=== PATIENT | female | born 1945 | race Asian ===

== ENCOUNTER 2019-08-16 15:32 | Day surgery (SDC) | payer MEDICARE ==
[~2019-08-16] VITALS: Ht 147.3 cm; Wt 68.0 kg
[~2019-08-16 15:32] MED LIST: ASCO10004 PO; ATEN50TA41 PO; BUPIVACAINE/EPI 0.5% 1:200K ONE; CHOL100014 PO; CYAN1TAB29 PO; ESMOLOL 100 MG/10 ML ONE; FENTANYL PF 100 MCG/2ML ONE; GINK60TA PO; HEPARIN 1,000 UNITS/ML, 10ML ONE; OMEG1CAP23 PO; VITA10004 PO; VITA1TAB19 PO; [UNRECOGNIZED DRUG - CODE] PO
[2019-08-16] MEDS ORDERED: LACTATED RINGERS 1,000 ML IV SCH ×2 (15:50→20:00)
[2019-08-16] MEDS ORDERED: SCOPOLAMINE PATCH, 1.5MG PATCH.TD72 TD ONE (16:00)
[2019-08-16] MEDS ORDERED: GABAPENTIN 300 MG CAPSULE PO ONE (16:00)
[2019-08-16] MEDS ORDERED: ONDANSETRON ODT 8 MG PO ONE (16:00)
[2019-08-16] MEDS ORDERED: ACETAMINOPHEN 500 MG TABLET PO ONE (16:00)
[2019-08-16] MEDS ORDERED: ONDANSETRON ODT 8 MG ONE (16:01)
[2019-08-16] MEDS ORDERED: ACETAMINOPHEN 500 MG TABLET ONE (16:01)
[2019-08-16] MEDS ORDERED: GABAPENTIN 300 MG CAPSULE ONE (16:02)
[2019-08-16 16:05] VITALS: BP 170/87
[2019-08-16] MEDS ORDERED: PLEASE ENTER ALLERGIES MC SCH (16:30)
[2019-08-16 16:37] LABS: ALANINE AMINOTRANSFERASE 38 U/L (12-78); ALBUMIN 4.3 g/dL (3.4-5.0); ANION GAP 8 mmol/L (5-15); CALCIUM 9.7 mg/dL (8.5-10.1); CHLORIDE 105 mmol/L (98-107); CREATININE 0.97 mg/dL (0.55-1.02)
[2019-08-16 16:39] LABS: ALKALINE PHOSPHATASE 83 U/L (45-117); BILIRUBIN,TOTAL 1.3 mg/dL (0.2-1.0); TOTAL PROTEIN 8.3 g/dL (6.4-8.2)
[2019-08-16] MEDS ORDERED: HYDROmorphone 2 MG/ML, 1ML IVPush PRN (17:00)
[2019-08-16] MEDS ORDERED: LABETALOL 5MG/ML, 20ML IV PRN (17:00)
[2019-08-16] MEDS ORDERED: MEPERIDINE/PF 25MG/ML,1ML IVPush PRN (17:00)
[2019-08-16] MEDS ORDERED: PROMETHAZINE 25 MG/ML, 1ML IV PRN (17:00)
[2019-08-16] MEDS ORDERED: HALOPERIDOL 5 MG/ML IV PRN (17:00)
[2019-08-16] MEDS ORDERED: FENTANYL PF 100 MCG/2ML IV PRN (17:00)
[2019-08-16] MEDS ORDERED: hydrALAzine 20 MG/ML, 1ML IV PRN (17:00)
[2019-08-16] MEDS ORDERED: OXYcodone 5 MG/5 ML ORAL.SOL UDC PO PRN (17:00)
[2019-08-16] MEDS ORDERED: PROPOFOL 10 MG/ML, 20ML ONE (17:05)
[2019-08-16] MEDS ORDERED: GLYCOPYRROLATE 0.2MG/1ML, 5ML ONE (17:05)
[2019-08-16] MEDS ORDERED: ROCURONIUM 10MG/ML,5ML ONE (17:05)
[2019-08-16] MEDS ORDERED: NEOSTIGMINE 1 MG/ML, 10ML ONE (17:05)
[2019-08-16] MEDS ORDERED: DEXAMETHASONE 4 MG/ML, 1ML ONE (17:05)
[2019-08-16] MEDS ORDERED: CEFAZOLIN 1,000 MG ONE (17:05)
[2019-08-16] MEDS ORDERED: SUCCINYLCHOLINE 20 MG/ML, 10ML ONE (17:05)
[2019-08-16] MEDS ORDERED: ONDANSETRON 2MG/ML, 2ML ONE (17:05)
[2019-08-16] MEDS ORDERED: METOPROLOL 1 MG/ML, 5ML ONE (17:27)
[2019-08-16] MEDS: METOPROLOL 1 MG/ML, 5ML IV PRN ×5 (17:32→18:13)
[2019-08-16] MEDS ORDERED: MORPHINE SULFATE 4 MG/ML, 1ML IVPush PRN (20:00)
[2019-08-16] MEDS ORDERED: ONDANSETRON 2MG/ML, 2ML IVPush PRN (20:30)
== END 2019-08-16 19:30 | disposition home or self-care (01) ==
LOC: OR 15:32 → 4NE 18:43 → OR 19:30
PROVIDERS: ATTEND Surgery
DX: C50.812 Malignant neoplasm of overlapping sites of left female breast (principal); I10 Essential (primary) hypertension; F41.9 Anxiety disorder, unspecified; K21.9 Gastro-esophageal reflux disease without esophagitis; E66.9 Obesity, unspecified; Z68.30 Body mass index [BMI] 30.0-30.9, adult; Z79.899 Other long term (current) drug therapy; Z85.3 Personal history of malignant neoplasm of breast; Z90.5 Acquired absence of kidney
CPT/HCPCS: 36415; 36561; 77001; 80053; C1769; C1788; J0330; J0690; J1100; J1644; J2405; J2704; J3010; J7120; Q0162; 71045; 76000; 77002; G0378; J2710

== ENCOUNTER 2019-08-20 09:05 | Outpatient (CLI) | payer MEDICAID, MEDICARE ==
[~2019-08-20 09:05] MED LIST changes: -BUPIVACAINE/EPI 0.5% 1:200K ONE; -ESMOLOL 100 MG/10 ML ONE; -FENTANYL PF 100 MCG/2ML ONE; -HEPARIN 1,000 UNITS/ML, 10ML ONE
[2019-08-20] MEDS ORDERED: GADOTERATE 5 MMOL/10 ML VIAL ONE (10:54)
== END 2019-08-20 23:59 | disposition home or self-care (01) ==
LOC: CFH 09:05
PROVIDERS: ATTEND Internal Medicine Hematology & Oncology
DX: C50.812 Malignant neoplasm of overlapping sites of left female breast (principal); Z85.3 Personal history of malignant neoplasm of breast
CPT/HCPCS: A9575; C8908; C8937; 77049

== ENCOUNTER 2019-08-23 07:54 | Outpatient (CLI) | payer MEDICAID, MEDICARE ==
[2019-08-23] MEDS ORDERED: SODIUM BICARBONATE 4.2%, 5ML ONE (08:00)
[2019-08-23] MEDS ORDERED: LIDOCAINE 1%, 20ML ONE (08:00)
[2019-08-23] MEDS ORDERED: LIDOCAINE 1%-EPI 1:100K, 20ML ONE (08:00)
== END 2019-08-23 23:59 | disposition home or self-care (01) ==
LOC: CFH 07:54
PROVIDERS: ATTEND Surgery
DX: C50.412 Malignant neoplasm of upper-outer quadrant of left female breast (principal); C77.3 Secondary and unspecified malignant neoplasm of axilla and upper limb lymph nodes; K21.9 Gastro-esophageal reflux disease without esophagitis; I10 Essential (primary) hypertension; F41.9 Anxiety disorder, unspecified; E66.9 Obesity, unspecified; Z68.30 Body mass index [BMI] 30.0-30.9, adult; Z79.899 Other long term (current) drug therapy; Z90.5 Acquired absence of kidney; Z80.3 Family history of malignant neoplasm of breast
CPT/HCPCS: 10035; 19285; 19286; 77065; J3490